=== PATIENT | male | born 1970 | race Caucasian/White ===

== ENCOUNTER 2017-01-23 19:14 | Emergency (ER) | payer BC ==
[~2017-01-23] VITALS: Ht 182.9 cm; Wt 102.1 kg
[~2017-01-23 19:14] MED LIST: OMEP40CA PO
[2017-01-23 19:17] VITALS: TEMP 36.8; Ht 182.9 cm; Wt 102.1 kg
[2017-01-23] MEDS ORDERED: IBUP-103 PO (19:31)
[2017-01-23] MEDS ORDERED: PRLSR20 PO (19:31)
[2017-01-23] MEDS ORDERED: XYLOCAINE 1%/SOD BICARB 20 ML VIAL INFIL ONE (19:45)
[2017-01-23] MEDS ORDERED: DIPHTHERIA/TETANUS/PERTUSSIS 0.5 ML SYR/VIAL IM. ONE (19:45)
--- NOTE | 2017-01-23 19:59 | DIAGNOSTIC IMAGING REPORT ---
RIGHT FOOT MIN 3 VIEWS ROUTINE CLINICAL HISTORY: Right foot laceration. COMPARISON: None FINDINGS: The tarsometatarsal joints are intact. There is no acute fracture. No radiopaque foreign bodies are identified. An accessory ossicle along the medial aspect of the talonavicular articulation is noted. 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 IMPRESSION: No acute fracture or radiopaque foreign body within the right foot. Electronically signed by: Edmar Parry M.D. 01/23/2017 7:58 PM Dictated Date/Time: 01/23/2017 7:57 PM
[2017-01-23] MEDS ORDERED: CEPH500C PO (20:23)
[2017-01-23] MEDS ORDERED: CEPHALEXIN 500MG HOME PACK 1 EA BTL PO ONE (20:30)
[2017-01-23 20:33] VITALS: BP 151/78; PULSE 75; O2SAT 97
--- NOTE | 2017-01-23 21:55 | EMERGENCY ROOM VISIT NOTE ---
History First contact with patient: 19:21 Chief Complaint: LACERATION/CUT (SUT/DERMABOND) Stated Complaint: GASH ON TOP OF RT FOOT Nursing Triage Summary: Pt reports getting glass bottles out of fridge, dropped and broke. Pt sliced right top of foot with piece of glass. 2 [address] lac[address] bandage in place. Tetanus is utd per pt History of Present Illness The patient is a 46 year old male who presents to the Emergency Room with complaints of a laceration to the top of his right foot after accidentally dropping a broken bottle onto his foot. The patient reports that he was swimming in the pool, and got out to go inside to get an alcoholic beverage. As he was reaching into the refrigerator for a beer, 2 other bottles of alcohol fell out onto the floor and broke. As he was carrying the broken bottles to the trashcan, one slipped out of his hand and landed on the top of his foot. The patient now reports significant discomfort with weightbearing, rating his pain an 8 out of 10. He denied any significant bleeding. He did not notice any glass stuck within the wound. He denies any paresthesias or numbness of the foot or toes. The patient is uncertain of his last tetanus immunization. Review of Systems 10 system review was performed and was negative except for pertinent positives and negatives as indicated in history of present illness Past Medical/Surgical History Medical Problems: (1) ESOPHAGEAL REFLUX (2) EXT HEMORRHOID W/O COMPL (3) INT HEMORRHOID W/O COMPL (4) MIXED HYPERLIPIDEMIA (5) TOBACCO USE DISORDER (6) UNILAT INGUINAL HERNIA Family History Colon cancer GRANDMOTHER Dm MOTHER Htn MOTHER Liver cancer GRANDMOTHER Lung cancer GRANDFATHER Prostate cancer GRANDFATHER Social History Smoking Status: Never Smoker Alcohol Use: occasionally Marital Status: Occupation Status: employed Current/Historical Medications Scheduled Cephalexin Monohydrate (Keflex), 500 MG PO TID Ibuprofen Tab (Advil), 600 MG PO DAILY Omeprazole (Prilosec), 20 MG PO DAILY Allergies Coded Allergies: Horse Allergy (Verified Allergy, Severe, ANAPHYLAXIS, 01/23/17) Physical Exam Vital Signs Date Time Temp Pulse Resp B/P (MAP) Pulse Ox O2 Delivery O2 Flow Rate FiO2 01/23/17 20:33 75 18 151/78 97 01/23/17 19:17 36.8 92 18 159/92 94 Room Air Physical Exam CONSTITUTIONAL: Healthy and well nourished. Alert and oriented X 3 with positive affect. HEENT: Normocephalic, atraumatic. Pupils equal, round and reactive. NECK: Full active range of motion without discomfort. MUSCULOSKELETAL: Examination of the right foot shows a 2 cm laceration across the dorsum of the distal third of the first metatarsal region. Patient is able to flex the great toe, but does have mild discomfort and weakness with attempted extension. Capillary refill is less than 2 seconds. There is no active bleeding or obvious glass foreign body within the wound. INTEGUMENTARY: No rash or other significant dermatologic conditions noted. NEUROLOGIC: No focal neurologic deficits noted. Right great toe is sensory intact. Medical Decision & Procedures ER Provider Diagnostic Interpretation: My interpretation of right foot x-rays does not show any obvious cortical fractures or radiopaque foreign debris. Radiologist report is as follows: RIGHT FOOT MIN 3 VIEWS ROUTINE CLINICAL HISTORY: Right foot laceration. COMPARISON: None FINDINGS: The tarsometatarsal joints are intact. There is no acute fracture. No radiopaque foreign bodies are identified. An accessory ossicle along the medial aspect of the talonavicular articulation is noted. 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 IMPRESSION: No acute fracture or radiopaque foreign body within the right foot. Medications Administered Medications (Trade) Dose Ordered Sig/Balwinder Route Start Time Stop Time Status Last Admin Dose Admin Diphtheria/ Pertussis/Tetanus Vacc (Adacel Inj) 0.5 ml ONCE ONCE IM. 01/23/17 19:45 01/23/17 19:46 DC 01/23/17 19:47 0.5 ML Procedure Laceration repair was performed under local anesthesia after receiving verbal consent from the patient. Using buffered 1% lidocaine without epinephrine, good local anesthesia was administered. The wound was then peripherally cleansed with iodine, then copiously pressure irrigated with 150 mL of normal saline. Exploration of the wound does not show any obvious glass foreign body or tendon lacerations. The wound was then approximated using 4-0 nylon simple interrupted sutures. A bacitracin dressing was applied. It is noted that the patient does have some weak extensor effort. He also reports a history of turf toe. ED Course Patient history and physical exam were performed. Nurse's notes were reviewed. Vital signs were reviewed and normal. The patient was administered Adacel IM. X-rays of the right foot was normal. Laceration repair was performed under local anesthesia. The patient was given specific written and verbal wound care instructions. Ice and elevation for swelling. Ibuprofen and Tylenol as needed for pain. The patient also has crutches that he use tonight because of the pain. Although the patient feels that his weak extensor effort is from his history of turf toe, I did suggest that he follow-up with Dr. Hurley for reevaluation. The patient was dispensed a home pack, and provided with a prescription for Keflex for prophylactic coverage because of the depth of the wound and possibility of extensor tendon injury. The patient was happy with plan of care, voiced understanding of all discharge instructions, and denied any significant discomfort at the time of discharge. Medical Decision Impression Primary Impression: Laceration of right foot Departure Information Dispostion Home / Self-Care Prescriptions Cephalexin Monohydrate (Keflex) 500 Mg Cap 500 MG PO TID for 7 Days, #21 CAP Prov: Shadi Kenny PA 01/23/17 Forms HOME CARE DOCUMENTATION FORM, IMPORTANT VISIT INFORMATION Patient Instructions My [facility] Additional Instructions Keep wound clean and dry. Do not allow any crusting or dried blood to accumulate on sutures. If this occurs, use a 1:1 solution of hydrogen peroxide/ water on a Q-tip to clean the wound. Use an antibiotic ointment for 3-4 days, then let wound dry. Suture removal in 12-14 days. Return sooner for any signs of infection (increasing redness, swelling, drainage). Ice and elevate for swelling and pain. Ibuprofen 800 mg and/or Tylenol 1000 mg every 8 hours. You may also alternate these medications for more effective pain relief: Ibuprofen --4 HRS--> Tylenol --4 HRS--> ibuprofen --4 HRS--> Tylenol .... Use your crutches as needed for additional pain relief. Problem Qualifiers Primary Impression: Laceration of right foot Encounter type: initial encounter Qualified Codes: S91.311A - Laceration without foreign body, right foot, initial encounter
[2017-01-29] MEDS ORDERED: TRAM-10 PO (08:42)
== END 2017-01-23 20:30 | disposition home or self-care (01) ==
LOC: C.EDB 19:16 → C.EDD 20:30
DX: S91.311A Laceration without foreign body, right foot, initial encounter (principal); Z23 Encounter for immunization; K21.9 Gastro-esophageal reflux disease without esophagitis; E78.2 Mixed hyperlipidemia; Z79.899 Other long term (current) drug therapy; Z87.19 Personal history of other diseases of the digestive system; Z82.49 Family history of ischemic heart disease and other diseases of the circulatory system; Z83.3 Family history of diabetes mellitus; Z80.0 Family history of malignant neoplasm of digestive organs; Z80.2 Family history of malignant neoplasm of other respiratory and intrathoracic organs; Z80.42 Family history of malignant neoplasm of prostate; Z80.8 Family history of malignant neoplasm of other organs or systems; W25.XXXA Contact with sharp glass, initial encounter

== ENCOUNTER → 2017-01-29 | Day surgery (SDC) | payer BC ==
[2017-01-28 12:47] VITALS: Ht 182.9 cm; Wt 104.5 kg
[~2017-01-29] VITALS: Ht 182.9 cm; Wt 104.5 kg
[~2017-01-29] MED LIST changes: +ATROPINE SULFATE 0.1 MG/ML 5ML SYR IV PRN; +BUPIVACAINE 0.5 % 5 MG/1 ML MPF 30ML VIAL ONE; +CEFAZOLIN 2000 MG/60 ML D5W 60 ML IV SCH; +CEPH500C PO; +DEXAMETHASONE SOD INJ 4 MG/ML VIAL IV PRN; +DEXAMETHASONE SOD INJ 4 MG/ML VIAL ONE; +EpHEDrine SULFATE INJ 50 MG/ML AMP IV PRN; +FENTANYL CITRATE INJ 50 MCG/1 ML 2 ML VIAL IV PRN; +FENTANYL CITRATE INJ 50 MCG/1 ML 2 ML VIAL ONE; +IBUP-103 PO; +KETOROLAC TROMETHAMINE 30 MG/ML VIAL IV. PRN; +KETOROLAC TROMETHAMINE 30 MG/ML VIAL ONE; +LABETALOL HCL IV 5 MG/ML 20ML IV PRN; +LACTATED RINGER'S 1000ML 1,000 ML IV SCH; +LIDOCAINE HCL 2% 2 ML VIAL (20MG/ML) ONE; +METOCLOPRAMIDE HCL INJ 5 MG/ML 2 ML VIAL IV PRN; +MIDAZOLAM HCL 1 MG/ML 2ML VIAL ONE; +MoRPHine SULFATE 10 MG/ML CARP/VIAL IV PRN; -OMEP40CA PO; +ONDANSETRON INJ 2 MG/ML 2 ML VIAL IV PRN; +ONDANSETRON INJ 2 MG/ML 2 ML VIAL ONE; +OXYCODONE/ACETAMINOPHEN 5-325 TAB PO PRN; +PHENYLEPHRINE 100MCG/ML 5ML SYR IV PRN; +PRLSR20 PO; +PROPOFOL IV EMULSION 10 MG/ML 20 ML VIAL IV ONE; +SODIUM CHLORIDE 0.9% 1000ML 1,000 ML IV SCH; +TRAM-10 PO
--- NOTE | 2017-01-29 07:45 | History & Physical Bridge - SC ---
H&P Re-Evaluation Bridge Note: I have examined the patient, reviewed the History & Physical and in the interval since the performance of the History & Physical I have noted the following changes of clinical significance: No changes noted
--- NOTE | 2017-01-29 08:34 | [facility] Post Operative Brief Note ---
Immediate Operative Summary Operative Date Jan 29, 2017. Pre-Operative Diagnosis Laceration Of Right Great Toe Post-Operative Diagnosis Same Procedure(s) Performed Right Great Toe Exploration and Repair Extensor Tendon Laceration Surgeon Dr. Hurley User Experience Team Lead Surgeon(s) Myron Paez PA-C Estimated Blood Loss 0 Findings ABOVE Specimens None Anesthesia LMA Complication(s) None Disposition Recovery Room / PACU
--- NOTE | 2017-01-29 08:44 | Discharge Instructions-SurgCtr ---
Discharge Instructions Date of Service Jan 29, 2017. Visit Reason for Visit: Laceration Of Left Great Toe Discharge Discharge Diagnosis / Problem: SAME ABOVE Discharge Goals Goal(s): Decrease discomfort, Improve function Activity Recommendations Activity Limitations: as noted below Lifting Limitations: until after follow-up appointment Exercise/Sports Limitations: until after follow-up appointment Shower/Bathe: keep incision dry Weightbearing Status: Right weightbearing (as tolerated) Anesthesia . Post Anesthesia Instructions: If you have had General Anesthesia or IV Sedation: * Do not drive today. * Resume driving when surgeon permits. * Do not make important decisions or sign legal documents today. * Call surgeon for: 1. Temperature elevations greater than 101 degrees F. 2. Uncontrollable pain. 3. Excessive bleeding. 4. Persistent nausea and vomiting. 5. Medication intolerance (nausea, vomiting or rash). * For nausea and vomiting use only clear liquids such as: tea, soda, bouillon until nausea subsides, then gradually increase diet as tolerated. * If you have any concerns or questions, call your surgeon's office. If physician is unavailable and it is an emergency, call 911 or go to the nearest emergency room. . Instructions / Follow-Up Instructions / Follow-Up MEDICATIONS: * Resume previous medications unless instructed otherwise by your surgeon. * Always take pain medication on a full stomach or with food to avoid upset stomach. * Do not drink alcohol or drive while taking narcotics. * Ibuprofen or Tylenol may be taken if narcotic not needed. SPECIAL CARE INSTRUCTIONS: __ None __ Keep extremity elevated and iced x 48 hours; apply ice 20-30 minutes 8-10 times/day. May remove at night. __ Crutches __ May discard when able _X_ Brace/Post-op shoe _X_ 24 hrs/day __ Remove at night _X_ Dressing _X_ Maintain until seen in office, may shower with plastic over site __ Remove dressings in 24-48 hours and then may shower __ Cover incisions with band-aids after showering __ Do not remove steri-strips FOLLOW UP IN OFFICE Wednesday02/01/[address] YUN Call physician if chills or temperature rises above 102 degrees or pain unrelieved by prescribed pain medications. Office [phone] Diet Recommendations Home Diet: resume previous diet Procedures Procedures Performed: Right Great Toe Exploration and Repair Extensor Tendon Laceration Pending Studies Studies pending at discharge: no Medical Emergencies . Who to Call and When: Medical Emergencies: If at any time you feel your situation is an emergency, please call 911 immediately. . Non-Emergent Contact Non-Emergency issues call your: Primary Care Provider . . "Provider Documentation" section prepared by Audi Paez. .
[2017-01-29 09:26] VITALS: TEMP 36.3
--- NOTE | 2017-01-29 09:32 | [facility] Operative Report ---
Operative Report Operative Date Jan 29, 2017. Pre-Operative Diagnosis Laceration Of Right Great Toe Post-Operative Diagnosis Same Procedure(s) Performed Right Great Toe Exploration and Repair Extensor Tendon Laceration Surgeon Dr. Hurley Collection Systems Consultant Surgeon(s) Myron Paez PA-C Estimated Blood Loss 0 Findings ABOVE Specimens None Anesthesia LMA Complication(s) None Disposition Recovery Room / PACU Description of Procedure Open repair of the extensor hallucis longus tendon. * Preoperative diagnosis rupture of extensor hallucis longus tendon Postoperative diagnosis same Procedure open repair of extensor hallucis longus tendon Surgeon Fina BUCKLEY Anesthesiologist Giovanna Drains none Complications none Condition patient tolerated procedure without return recovery room in apparent satisfactory condition Procedure patient taken operating room WAS PLACED UPON OPERATING TABLE. SUPINE ANESTHESIA DEPARTMENT RIGHT LEG WAS PREPPED AND DRAPED IN STERILE FASHION FOR SURGERY THE LEG WAS EXTENUATED Tourniquet WAS PLACED UP TO 250 MMHG AN INCISION WAS OPENED. THE EXTENSOR LONGUS AUGUST AND WAS COMPLETELY LACERATED WE OBTAINED THE PROXIMAL DISTAL ENDS AND IRRIGATED THE WOUND AND THEN REPAIRED THE TENDON WITH 3-0 ETHIBOND SUTURE. A FIOR NEEDLE WAS USED TO KEEP THE TENDON in EXTENSION WOUND WAS COPIOUSLY IRRIGATED SCISSORS WAS CLOSED WITH 4-0 NUROLON SUTURES MARCAINE WITHOUT EPINEPHRINE AND SKIN EDGES AND PLACED A STERILE DRESSING WITH A VOLAR SPLINT INTO ANATOMIC EXTENSION RETURNED RECOVERY ROOM IN APPARENT SATISFACTORY CONDITION I attest to the content of the Intraoperative Record and any orders documented therein. Any exceptions are noted below.
--- NOTE | 2017-01-29 09:55 | Anesthesia Progress Nt - [facility] ---
Anesthesia Post Op Note Date & Time Jan 29, 2017 at 09:54 Vital Signs Pain Intensity: 6.0 Vital Signs Past 12 Hours Date Time Temp Pulse Resp B/P (MAP) Pulse Ox O2 Delivery O2 Flow Rate FiO2 01/29/17 09:26 36.3 65 18 150/82 (104) 95 Room Air 01/29/17 09:21 63 18 124/78 94 01/29/17 09:21 36.4 65 18 01/29/17 09:16 58 13 137/84 99 01/29/17 09:16 62 13 01/29/17 09:13 132/85 01/29/17 09:11 64 18 01/29/17 09:11 66 18 98 01/29/17 09:06 10 01/29/17 09:06 65 10 150/70 01/29/17 09:01 70 14 127/90 98 01/29/17 09:01 68 14 01/29/17 08:56 66 15 01/29/17 08:56 65 15 128/87 96 01/29/17 08:51 68 17 135/80 95 01/29/17 08:51 69 17 01/29/17 08:46 72 14 01/29/17 08:46 72 14 127/68 100 01/29/17 08:42 37 64 16 135/87 100 Mask 6 01/29/17 08:41 63 11 135/87 99 01/29/17 08:41 64 11 01/29/17 07:11 36.7 62 16 154/104 (121) 95 Room Air Notes Mental Status: alert / awake / arousable, participated in evaluation Pt Amnestic to Procedure: Yes Nausea / Vomiting: adequately controlled Pain: adequately controlled Airway Patency, RR, SpO2: stable & adequate BP & HR: stable & adequate Hydration State: stable & adequate Anesthetic Complications: no major complications apparent
[2017-01-29 10:01] VITALS: BP 137/79; PULSE 61; O2SAT 95
== END | disposition home or self-care (01) ==
LOC: X.SURG 06:52
PROVIDERS: ATTEND Orthopaedic Surgery
DX: S96.121A Laceration of muscle and tendon of long extensor muscle of toe at ankle and foot level, right foot, initial encounter (principal); W25.XXXA Contact with sharp glass, initial encounter; R12 Heartburn